=== PATIENT | female | born 1980 | race African-American/Black ===

== ENCOUNTER 2018-12-13 20:45 | Emergency (ER) | payer OTHER ==
[~2018-12-13] VITALS: Ht 177.8 cm; Wt 99.8 kg
[~2018-12-13 20:45] MED LIST: BACTRIM DS TAB1 EACH PO; DARVOCET-N 1001 EACH PO; DOXYCYCLINE 10100 MG PO; NAPROSYN500 MG PO; NOHOMEMEDICATIONS; NORCO 5-325 TA1 EACH PO; NORFLEX100 MG PO; PREDNISONE 20 M20 MG PO; TRAMADOL 50 MG50 MG PO; VISTARIL 25 MG25 M1 OR
[2018-12-13] MEDS ORDERED: IBUPROFEN 200200 M1 PO (21:07)
[2018-12-13] MEDS ORDERED: MOBIC7.5 MG PO (21:30)
[2018-12-13 22:53] VITALS: BP 147/80
== END 2018-12-13 22:55 | disposition home or self-care (01) ==
LOC: ER 20:45
DX: S93.401A Sprain of unspecified ligament of right ankle, initial encounter (principal); F17.210 Nicotine dependence, cigarettes, uncomplicated; W01.0XXA Fall on same level from slipping, tripping and stumbling without subsequent striking against object, initial encounter; Y93.89 Activity, other specified; Y92.002 Bathroom of unspecified non-institutional (private) residence as the place of occurrence of the external cause; Y99.8 Other external cause status

== ENCOUNTER 2019-01-18 11:27 | Emergency (ER) | payer MEDICAID ==
[~2019-01-18] VITALS: Ht 157.5 cm; Wt 99.8 kg
[~2019-01-18 11:27] MED LIST changes: +IBUPROFEN 200200 M1 PO; +MOBIC7.5 MG PO
[2019-01-18] MEDS ORDERED: NORCO 5-325 TA1 EACH PO (12:42)
[2019-01-18] MEDS ORDERED: TYLENOL EXTRA500 MG PO (12:42)
[2019-01-18 13:06] VITALS: BP 118/53
== END 2019-01-18 13:07 | disposition home or self-care (01) ==
LOC: ER 11:27
DX: S52.571A Other intraarticular fracture of lower end of right radius, initial encounter for closed fracture (principal); F17.210 Nicotine dependence, cigarettes, uncomplicated; W10.9XXA Fall (on) (from) unspecified stairs and steps, initial encounter; Y92.89 Other specified places as the place of occurrence of the external cause; Y93.89 Activity, other specified; Y99.8 Other external cause status

== ENCOUNTER 2019-01-27 22:04 | Emergency (ER) | payer MEDICAID ==
[~2019-01-27] VITALS: Ht 157.5 cm; Wt 99.8 kg
[~2019-01-27 22:04] MED LIST changes: +TYLENOL EXTRA500 MG PO
[2019-01-27 22:11] VITALS: BP 144/85
== END 2019-01-27 23:23 | disposition left against medical advice (07) ==
LOC: ER 22:04
DX: S52.591A Other fractures of lower end of right radius, initial encounter for closed fracture (principal); F17.210 Nicotine dependence, cigarettes, uncomplicated; W22.8XXA Striking against or struck by other objects, initial encounter; Y92.009 Unspecified place in unspecified non-institutional (private) residence as the place of occurrence of the external cause; Y93.89 Activity, other specified; Y99.8 Other external cause status

== ENCOUNTER 2020-06-04 20:47 | Emergency (ER) | payer OTHER ==
[~2020-06-04] VITALS: Ht 157.5 cm; Wt 68.0 kg
[2020-06-04 20:48] VITALS: BP 126/83
== END 2020-06-04 22:40 ==
LOC: ER 20:47
DX: S00.81XA Abrasion of other part of head, initial encounter (principal); R10.9 Unspecified abdominal pain; F17.210 Nicotine dependence, cigarettes, uncomplicated; Y04.2XXA Assault by strike against or bumped into by another person, initial encounter; Y93.89 Activity, other specified; Y92.89 Other specified places as the place of occurrence of the external cause; Y99.8 Other external cause status